=== PATIENT | male | born 1995 | race Caucasian/White ===

== ENCOUNTER 2016-07-07 11:42 | Emergency (ER) | payer BC ==
[2016-07-07] MEDS ORDERED: KETOROLAC 60 MG/2 ML VIAL IM ONE (12:02)
[2016-07-07] MEDS ORDERED: TRAMADOL 50 MG TAB ONE (12:02)
== END 2016-07-07 12:41 | disposition home or self-care (01) ==
LOC: FASTR 11:42
DX: S39.012A Strain of muscle, fascia and tendon of lower back, initial encounter (principal); G89.11 Acute pain due to trauma
CPT/HCPCS: 96372